=== PATIENT | female | born 1990 | race African-American/Black ===

== ENCOUNTER 2019-07-15 16:33 | Emergency (ER) | payer OTHER ==
[~2019-07-15] VITALS: Ht 152.4 cm; Wt 55.4 kg
[2019-07-15 17:06] VITALS: Ht 152.4 cm; Wt 55.4 kg
[2019-07-15 19:10] VITALS: BP 109/62
== END 2019-07-15 19:10 | disposition home or self-care (01) ==
LOC: ED 16:33
DX: S62.101A Fracture of unspecified carpal bone, right wrist, initial encounter for closed fracture (principal); W01.0XXA Fall on same level from slipping, tripping and stumbling without subsequent striking against object, initial encounter; Y93.89 Activity, other specified; Y92.89 Other specified places as the place of occurrence of the external cause; Y99.8 Other external cause status